=== PATIENT | male | born 1955 | race Caucasian/White ===

== ENCOUNTER 2024-05-24 17:41 | Observation (INO) | payer MEDICARE, OTHER, SELFPAY ==
[2024-05-24 17:58] VITALS: BP 166/82; PULSE 67; RESP 16; TEMP 37.1; O2SAT 95; BMI 24.3
--- NOTE | 2024-05-24 18:42 | ECG_ITS ---
[facility] Test Date: 2024-05-24 Pat Name: Ulises Weaver Department: Room: Gender: Male Piping Drafter: : 1955 Requested By: Piter Maynard Order Number: [id number] Reading MD: Mitul Lozoya M.D. Measurements Intervals [place] Rate: 57 P: 61 CT: 162 QRS: -29 QRSD: 106 T: 55 QT: 419 QTc: 411 Interpretive Statements SINUS BRADYCARDIA INCOMPLETE RIGHT BUNDLE BRANCH BLOCK [90+ ms QRS DURATION, TERMINAL R IN V1/V2, 40+ ms S IN I/aVL/V4/V5/V6] POSSIBLE INFERIOR MYOCARDIAL INFARCTION , OF INDETERMINATE AGE [30 ms Q WAVE IN II/aVF] No previous ECG available for comparison Electronically Signed On 05-26-2024 19:25:38 CDT by Mitul Lozoya M.D. [id number]
--- NOTE | 2024-05-24 18:46 | ED_ITS ---
HPI - General Adult 2 General: Chief complaint: General Medical Stated complaint: insomnia 72hr bp meds reaction to beta blockers Time Seen by Provider: 05/24/24 18:36 Source: patient Mode of arrival: ambulatory Limitations: no limitations History of Present Illness: 68-year-old male states he was on Coreg states that been causing sinus pressure and recently switched to metoprolol after he had follow-up with cardiology at [facility]. He states that he feels like he cannot tolerate that med has been having difficult time sleeping he states he called his pharmacy and switch back to Coreg and states he has not slept on the last 72 hours. He states he feels very tired he is also been having nausea he denies any pain anywhere he states he is try to get old his heel cutter but has not been able to. Associated symptoms: Reports nausea; Deny chest pain, dyspnea, headache(s), rash or vomiting Review of Systems 2 Const: Denies: fever(s), chills, body aches or change in appetite ENMT: Denies: throat pain or dental pain Card: Denies: chest pain Resp: Denies: dyspnea GI: Reports: nausea; Denies: abdominal pain, vomiting or diarrhea Musc: Denies: neck pain or back pain Skin/Breast: Denies: rash Neuro: Denies: headache(s) Physical Exam 2 Const: COMMON NORMALS: no acute distress, patient oriented x3 and healthy appearing HENMT: COMMON NORMALS: normocephalic and atraumatic HEAD & SCALP: n ormocephalic and atraumatic Neck/C-Spine: COMMON NORMALS: full ROM and supple Chest: COMMONS NORMALS: normal inspection of the chest Resp: COMMON NORMALS: normal respiratory effort, No retractions, No use of accessory muscles and clear to auscultation bilaterally AUSCULTATION: clear to auscultation bilaterally Cardio: COMMON NORMALS: regular rate, regular rhythm and No murmurs present (Cardio) RATE: regular rate RHYTHM: regular rhythm GI: COMMON NORMALS: Normal to inspection, nondistended, normoactive bowel sounds present, Soft to palpation, non-tender and no masses PALPATION: Yes Soft to palpation Extremity: COMMON NORMALS: normal to inspection and full ROM Neuro: COMMON NORMALS: patient oriented x3, moves all extremities and no focal motor deficits Psych: COMMON NORMALS: mental status grossly normal, Normal thought process present and cooperative THOUGHT PROCESS: Normal thought process present Skin: COMMON NORMALS: no rashes or lesions noted and no wounds GENERAL SKIN EXAM: no rashes or lesions noted Course 2 Vital Signs: Vital signs: Vital Signs Temperature 98.8 F 05/24/24 17:58 Pulse Rate 61 05/24/24 18:47 Respiratory Rate 16 05/24/24 18:47 Blood Pressure 150/85 05/24/24 18:47 Pulse Oximetry 94 05/24/24 18:47 Oxygen Delivery Me thod Room Air 05/24/24 18:47 MDM - General Adult Medical Decision Making Patient presents here with generalized fatigue difficulty sleeping he is found to be hyponatremic here sodium level here is 127 his abdominal exam is benign no tenderness no chest pain I did speak to the hospitalist will admit at this time. Medical Records I reviewed the patient's medical records. Lab Data I reviewed the patient's lab results. 05/24/24 18:53 05/24/24 18:53 Laboratory Results WBC 10.18 10^3/uL (3.29-11.43) 05/24/24 18:53 RBC 4.77 10^6/uL (3.85-5.65) 05/24/24 18:53 Hgb 14.40 g/dL (11.27-16.99) 05/24/24 18:53 Hct 41.6 % (37-53) 05/24/24 18:53 MCV 87.2 fl (82-101) 05/24/24 18:53 MCH 30.2 pg (27-33) 05/24/24 18:53 MCHC 34.6 g/dL (30-55) 05/24/24 18:53 RDW 11.9 % (12.1-15.1) L 05/24/24 18:53 Plt Count 249 10^3/cmm (157-399) 05/24/24 18:53 MPV 10.2 fL (7.4-10.4) 05/24/24 18:53 Neut % (Auto) 73.4 % 05/24/24 18:53 Lymph % (Auto) 18.3 % 05/24/24 18:53 [place] % (Auto) 7.0 % 05/24/24 18:53 Eos % (Auto) 0.8 % 05/24/24 18:53 Baso % (Auto) 0.2 % 05/24/24 18:53 Neut # (Auto) 7.48 10^3/uL (1.8-7.7) 05/24/24 18:53 Lymph # (Auto) 1.9 10^3/uL (0.8-4.8) 05/24/24 18:53 [place] # (Auto) 0.7 10^3/uL (0.2-0.9) 05/24/24 18:53 Eos # (Auto) 0.1 10^3/uL (0.0-0.8) 05/24/24 18:53 Baso # (Auto) 0.0 10^3/uL (0.0-0.1) 05/24/24 18:53 Nucleated RBC % (auto) 0 % 05/24/24 18:53 Nucleated RBCs # 0.0 /100WBC 05/24/24 18:53 Sodium 127 mmol/L (136-145) L 05/24/24 18:53 Potassium 3.7 mmol/L (3.5-5.1) 05/24/24 18:53 Chloride 94 mmol/L (98-107) L 05/24/24 18:53 Carbon Dioxide 23 mmol/L (22-29) 05/24/24 18:53 Anion Gap 13.7 (5-19) 05/24/24 18:53 BUN 9 mg/dL (8-23) 05/24/24 18:53 Creatinine 0.5 mg/dL (0.7-1.2) L 05/24/24 18:53 GFR Calculation 164.4 mL/min (90-130) H 05/24/24 18:53 Glucose 112 mg/dL (65-115) 05/24/24 18:53 Calculated Osmolality 263 mOsm/kg (285-295) L 05/24/24 18:53 Calcium 8.7 mg/dL (8.5-10.5) 05/24/24 18:53 Total Bilirubin 1.4 mg/dL (0.15-1.2) H 05/24/24 18:53 AST 16 U/L (0-40) 05/24/24 18:53 ALT 18 U/L (0-41) 05/24/24 18:53 Alkaline Phosphatase 54 U/L (40-130) 05/24/24 18:53 Total Protein 6.7 g/dL (6.6-8.7) 05/24/24 18:53 Albumin 4.2 g/dL (3.5-5.2) 05/24/24 18:53 Globulin 2.5 g/dL (1.3-4.6) 05/24/24 18:53 Lipase 32 U/L (13-60) 05/24/24 18:53 TSH 0.65 uIU/mL (0.27-4.20) 05/24/24 18:53 All radiology interpretation(s) finalized by discharge Discharge Plan Discharge Patient Disposition: Admitted As Inpatient Clinical Impression: Hyponatremia Condition: Stable Prescriptions: No Action metoprolol succinate 25 mg tablet extended release 24 hr 12.5 mg PO DAILY Referrals: Maggy Camargo [Primary Care Provider] - Coding Level of Care Code ED Layer Out Plate Glass for Morena Plata
[2024-05-24 18:47] VITALS: BP 150/85; PULSE 61; RESP 16; O2SAT 94
[2024-05-24 19:03] LABS: Basophils % 0.2 %; Eosinophils # 0.1 10^3/uL (0.0-0.8); Eosinophils % 0.8 %; Hematocrit 41.6 % (37-53); Lymphocytes # 1.9 10^3/uL (0.8-4.8); Lymphocytes % 18.3 %; Mean Corpuscular HGB Conc 34.6 g/dL (30-55); Mean Corpuscular Hemoglobin 30.2 pg (27-33); Mean Corpuscular Volume 87.2 fl (82-101); Mean Platelet Volume 10.2 fL (7.4-10.4); Monocytes # 0.7 10^3/uL (0.2-0.9); Neutrophils # 7.48 10^3/uL (1.8-7.7); Neutrophils % 73.4 %; Nucleated Red Blood Cells % 0 %; Platelet Count 249 10^3/cmm (157-399); Red Blood Count 4.77 10^6/uL (3.85-5.65); Red Cell Distribution Width 11.9 % (12.1-15.1); White Blood Count 10.18 10^3/uL (3.29-11.43)
[2024-05-24 19:29] LABS: Alanine Aminotransferase 18 U/L (0-41); Albumin Level 4.2 g/dL (3.5-5.2); Alkaline Phosphatase 54 U/L (40-130); Anion Gap 13.7 (5-19); Aspartate Amino Transferase 16 U/L (0-40); Blood Urea Nitrogen 9 mg/dL (8-23); Calcium 8.7 mg/dL (8.5-10.5); Carbon Dioxide 23 mmol/L (22-29); Chloride 94 mmol/L (98-107); Creatinine Clr Calc Pharmacy 90.7137; Globulin 2.5 g/dL (1.3-4.6); Glomerular Filtration Rate 164.4 mL/min (90-130); Glucose 112 mg/dL (65-115); Lipase 32 U/L (13-60); Osmolality Calculated 263 mOsm/kg (285-295); Potassium 3.7 mmol/L (3.5-5.1); Sodium 127 mmol/L (136-145); Thyroid Stimulating Hormone 0.65 uIU/mL (0.27-4.20); Total Bilirubin 1.4 mg/dL (0.15-1.2); Total Protein 6.7 g/dL (6.6-8.7)
[2024-05-24] MEDS: sodium chloride 0.9% 1,000 ML 999 ML IV (20:30)
--- NOTE | 2024-05-24 20:33 | P.HP_ITS ---
Providers/Chief Complaint 2 Primary Care Provider: Maggy Camargo Chief Complaint: insomnia 72hr bp meds reaction to beta blockers History of Present Illness Ulises Weaver is a 68 year old male with history of SVT, sinus congestion/allergic rhinitis which is chronic presented to the hospital today with nausea. He states that he was diagnosed with PVCs and SVT and was symptomatic and therefore was placed on Coreg 3.1252 months ago. He said he had SVT and PVCs for a long time however he is unsure why he was recently placed on a beta-norris. Perhaps secondary to symptoms?. He states he wore a Holter monitor for 72 hours and it revealed PVCs and an abnormal EKG however he is unable to tell me details of that. Therefore he had a stress test and an echo which were both normal. He follows with Dr. Mg in [place]. 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 He states he felt more terrible also called his pharmacist 3 days ago and discussed the above adverse effects therefore decided to go back to Coreg. His primary reason for coming to the hospital was extreme nausea and not feeling well and loss of appetite. He was also having mild abdominal pain which is improved at this time. On arrival to ER sodium was found to be 127, creatinine 0.5. T. bili is 1.4 however patient states he has no other medical problems and is fairly healthy. He does not take any medications at home. TSH is 0.70. No imaging studies have been obtained so far. Denies chest pain, shortness of breath. Patient additionally endorses having loose stools once a day. This has been going on for the last few days. There is no blood in stool. In ER he was given 1 L normal saline bolus Medications/Allergies Home Medications Medication Instructions Recorded Confirmed Last Taken Type metoprolol succinate 25 mg 12.5 mg PO DAILY 05/24/24 05/24/24 Unknown History tablet,extended release 24 hr Allergies Allergy/AdvReac Type Severity Reaction Status Date / Time tetracycline Allergy Unknown Verified 05/24/24 18:03 Vitals/I&O/Wt Last Vital Signs Temp 98.8 F 05/24/24 17:58 Pulse 61 05/24/24 18:47 Resp 16 07/05/24 18:47 BP 150/85 05/24/24 18:47 Pulse Ox 94 05/24/24 18:47 O2 Del Method Room Air 05/24/24 18:47 Weight last 48 hrs Weight 77.111 kg Physical Exam 2 Narrative: General: Alert oriented x3, patient seen sitting up in bed appearing comfortable at this time surrounded by family. RN present in room. Patient on room air. No acute distress. HEENT: Normocephalic, atraumatic, EOMI, Cardio: Regular rate rhythm, normal S1-S2 no gross murmurs appreciated. Respiratory: Good bilateral air entry, no wheezes no rhonchi appreciated GI: Abdomen soft, nontender, nondistended, bowel sounds +, no guarding Behavior: Appropriate and cooperative Extremities: Within normal limits. Data 05/24/24 18:53 05/24/24 20:57 A&P Assessment and plan (1) Hyponatremia: (2) Abdominal pain: (3) Nausea: (4) Total bilirubin, elevated: (5) Hypertension: (6) SVT (supraventricular tachycardia): (7) PVC (premature ventricular contraction): Plan #Nausea, abdominal pain #Acute hyponatremia #History of SVTs, PVCs -Patient does have a normal stress test and normal echo as reported by the patient. The studies were done in [place]. He follows with Dr. Mg as an outpatient. I will continue to hold Coreg and metoprolol both at this time. We will need to obtain records from [place]. ? Lona. tresi 1.4. No imaging studies have been obtained. Patient does not endorse any issues and states he is medically healthy otherwise. ? I will order abdominal ultrasound at this time. ? Abdominal pain and nausea may be secondary to hyponatremia however sodium is not that low to cause symptoms however it is still possible. ? Loose stools once a day may be nonspecific finding? I do not believe there is an active infection going on. I would observe that for now. ? Check urine osmolality, serum osmolality, urine sodium ? Sodium 125 on arrival. Not to correct more than 6 to 8 mEq per 24-hour.. ? Patient did get 1 L normal saline bolus. He denies any vomiting at this time. ? He does not take any home medications. ? Will place on normal saline 75 cc/h and check BMP every 4 hours. ? Continue to monitor on telemetry. ? May order CT abdomen pelvis in a.m. if further studies warranted. Will repeat CMP in AM. ? Patient denies alcohol use, smoking, illicit drug use Discussed at length with the patient regarding his sinus issues and it is possible that patient may have chronic allergic rhinitis. I did offer to give a trial of Flonase however patient states he is going to be seeing an ENT doctor and does not want to try any medications at this time. -Patient takes melatonin daily to help him sleep. I will order Ambien 2.5 x 1 for him. He agrees. -Blood pressure has been elevated since arrival. Denies a history of hypertension. Will continue to monitor for now. Advised patient to keep a blood pressure log sheet at home and take to the next primary care appointment. - Check urinalysis Full code DVT prophylaxis: Heparin SQ twice daily Attestations 2 Medical Necessity Statement*: Less than 48-hour stay for management of acute hyponatremia. Diagnoses Hyponatremia E87.1 Abdominal pain R10.9 Nausea R11.0 Total bilirubin, elevated R17 Hypertension I10 SVT (supraventricular tachycardia) I47.10 PVC (premature ventricular contraction) I49.3
[2024-05-24 20:34] VITALS: BP 172/86; PULSE 60; RESP 17; TEMP 37.1; O2SAT 97
[2024-05-24 21:29] LABS: Anion Gap 12.8 (5-19); Blood Urea Nitrogen 9 mg/dL (8-23); Calcium 8.3 mg/dL (8.5-10.5); Carbon Dioxide 24 mmol/L (22-29); Chloride 97 mmol/L (98-107); Creatinine Clr Calc Pharmacy 90.7137; Glomerular Filtration Rate 164.4 mL/min (90-130); Glucose 121 mg/dL (65-115); Osmolality Calculated 270 mOsm/kg (285-295); Potassium 3.8 mmol/L (3.5-5.1); Sodium 130 mmol/L (136-145)
[2024-05-24 21:43] LABS: Urine Random Sodium 70 mmol/L
[2024-05-24] MEDS: sodium chloride 0.9% 1,000 ML 75 ML IV (21:43)
[2024-05-24 21:52] VITALS: BP 150/85; PULSE 61; RESP 16; TEMP 37.1; O2SAT 94
[2024-05-24] MEDS: zolpidem 5 mg Tablet 2.5 MG PO (22:29)
[2024-05-24 22:51] VITALS: PULSE 65
[2024-05-25] VITALS: BP 150/78; PULSE 65; RESP 17; TEMP 36.6; O2SAT 94
--- NOTE | 2024-05-25 00:11 | USR_ITS ---
PROCEDURE INFORMATION: Exam: US Abdomen Complete Exam date and time: 05/25/2024 7:12 AM Age: 68 years old Clinical indication: Abdominal pain; Additional info: Abdominal pain, total bilirubin elevated. Check for gall stones. TECHNIQUE: Imaging protocol: Real-time ultrasound of the abdomen with image documentation. Complete exam. COMPARISON: No relevant prior studies available. FINDINGS: Liver: The liver is echogenic compatible with fatty infiltration. No focal liver masses identified. No ductal dilatation is identified. Gallbladder: Normal. No gallstones. There is no gallbladder wall thickening. Biliary ducts: Normal. No stones. No dilation. The common bile duct measures 6 mm in size. Pancreas: The pancreatic head and proximal body are normal in echotexture. The distal body and tail are poorly seen secondary to overlying bowel gas. Right kidney: Normal. No mass. No hydronephrosis. The right kidney measures 10 cm in length and is normal in echotexture. Left kidney: Normal. No mass. No hydronephrosis. The left kidney measures 11.8 cm in length and is normal in echotexture. Spleen: Normal. No splenomegaly. Aorta: Normal. No aneurysm. Inferior vena cava: Normal. US/US abdomen complete* [id number] IMPRESSION: 1. Fatty infiltration of the liver.
[2024-05-25 02:27] LABS: Anion Gap 11.1 (5-19); Blood Urea Nitrogen 7 mg/dL (8-23); Calcium 8.4 mg/dL (8.5-10.5); Carbon Dioxide 26 mmol/L (22-29); Chloride 104 mmol/L (98-107); Creatinine Clr Calc Pharmacy 90.5066; Glomerular Filtration Rate 133.2 mL/min (90-130); Glucose 101 mg/dL (65-115); Osmolality Calculated 282 mOsm/kg (285-295); Potassium 4.1 mmol/L (3.5-5.1); Sodium 137 mmol/L (136-145)
[2024-05-25 04:00] VITALS: BP 134/70; PULSE 52; RESP 17; TEMP 36.6; O2SAT 92
[2024-05-25 05:53] VITALS: PULSE 53
[2024-05-25 05:53] LABS: Basophils % 0.2 %; Eosinophils # 0.2 10^3/uL (0.0-0.8); Eosinophils % 1.8 %; Hematocrit 42.5 % (37-53); Lymphocytes # 2.1 10^3/uL (0.8-4.8); Mean Corpuscular HGB Conc 33.6 g/dL (30-55); Mean Corpuscular Hemoglobin 30.3 pg (27-33); Mean Platelet Volume 10.3 fL (7.4-10.4); Monocytes # 0.8 10^3/uL (0.2-0.9); Monocytes % 9.5 %; Neutrophils # 5.31 10^3/uL (1.8-7.7); Neutrophils % 63.1 %; Nucleated Red Blood Cells % 0 %; Platelet Count 222 10^3/cmm (157-399); Red Blood Count 4.72 10^6/uL (3.85-5.65); Red Cell Distribution Width 12.3 % (12.1-15.1); White Blood Count 8.41 10^3/uL (3.29-11.43)
[2024-05-25 06:13] LABS: Alanine Aminotransferase 18 U/L (0-41); Albumin Level 3.8 g/dL (3.5-5.2); Alkaline Phosphatase 50 U/L (40-130); Anion Gap 10.1 (5-19); Aspartate Amino Transferase 16 U/L (0-40); Blood Urea Nitrogen 8 mg/dL (8-23); Calcium 8.7 mg/dL (8.5-10.5); Carbon Dioxide 25 mmol/L (22-29); Chloride 104 mmol/L (98-107); Globulin 2.2 g/dL (1.3-4.6); Glomerular Filtration Rate 164.4 mL/min (90-130); Glucose 96 mg/dL (65-115); Osmolality Calculated 278 mOsm/kg (285-295); Phosphorus 2.6 mg/dL (2.5-4.5); Potassium 4.1 mmol/L (3.5-5.1); Sodium 135 mmol/L (136-145); Total Bilirubin 1.7 mg/dL (0.15-1.2)
[2024-05-25 06:16] LABS: Creatinine Clr Calc Pharmacy 91.2508
[2024-05-25 07:45] VITALS: BP 154/72; PULSE 59; RESP 17; TEMP 36.6; O2SAT 94
[2024-05-25] MEDS: heparin 5,000 unit/mL INJ 1 mL 5000 UNIT SUBCUT (08:35)
[2024-05-25 09:19] LABS: Anion Gap 13.1 (5-19); Blood Urea Nitrogen 8 mg/dL (8-23); Calcium 8.7 mg/dL (8.5-10.5); Carbon Dioxide 23 mmol/L (22-29); Chloride 103 mmol/L (98-107); Glomerular Filtration Rate 133.2 mL/min (90-130); Glucose 126 mg/dL (65-115); Osmolality Calculated 280 mOsm/kg (285-295); Potassium 4.1 mmol/L (3.5-5.1); Sodium 135 mmol/L (136-145)
--- NOTE | 2024-05-25 09:28 | CTR_ITS ---
PROCEDURE INFORMATION: Exam: CT Head Without Contrast Exam date and time: 05/25/2024 10:40 AM Age: 68 years old Clinical indication: Other: [place] TECHNIQUE: Imaging protocol: Computed tomography of the head without contrast. Radiation optimization: All CT scans at this facility use at least one of these dose optimization techniques: automated exposure control; mA and/or kV adjustment per patient size (includes targeted exams where dose is matched to clinical indication); or iterative reconstruction. COMPARISON: No relevant prior studies available. RADIATION DOSE METRICS: Total DLP (mGy-cm): 1097.28 FINDINGS: Brain: Normal. No hemorrhage. Unremarkable white matter. No mass effect. Cerebral ventricles: No ventriculomegaly. Paranasal sinuses: There is mucosal thickening involving the paranasal sinuses. Mastoid air cells: Visualized mastoid air cells are well aerated. Bones: Unremarkable. No acute fracture. Soft tissues: Unremarkable. CT/CT head wo con* [id number] IMPRESSION: 1. No acute intracranial findings.
--- NOTE | 2024-05-25 09:28 | CTR_ITS ---
PROCEDURE INFORMATION: Exam: CT Abdomen And Pelvis Without Contrast Exam date and time: 05/25/2024 10:40 AM Age: 68 years old Clinical indication: Nausea; Additional info: [place] TECHNIQUE: Imaging protocol: Computed tomography of the abdomen and pelvis without contrast. Radiation optimization: All CT scans at this facility use at least one of these dose optimization techniques: automated exposure control; mA and/or kV adjustment per patient size (includes targeted exams where dose is matched to clinical indication); or iterative reconstruction. COMPARISON: US gall bladder [id number] 05/25/2024 7:12 AM RADIATION DOSE METRICS: Total DLP (mGy-cm): 458.57 FINDINGS: Lungs: Atelectatic changes in both lung bases. Liver: Normal. No mass. Gallbladder and biliary ducts: Normal. No calcified stones. No ductal dilation. Pancreas: Normal. No ductal dilation. Spleen: Calcified granulomas in the spleen. Adrenal glands: There is a 1.7 x 1.5 x 1.6 cm right adrenal nodule with average CT density of-7 Hounsfield units, consistent with a lipid rich adenoma. There is a 1.7 x 1 x 4.1 cm left adrenal nodule with average CT density of -2 Hounsfield units, consistent with lipid rich adenoma. Kidneys and ureters: There is a nonobstructing stone in the interpolar region of the right kidney measuring 6 mm. Nonobstructing stone in the lower pole of the left kidney measuring 3 mm. No hydronephrosis either side. Stomach and bowel: Unremarkable. No obstruction. No mucosal thickening. Appendix: No evidence of appendicitis. Intraperitoneal space: Unremarkable. No free air. No significant fluid collection. Vasculature: Vascular calcifications. Pelvic phleboliths. Lymph nodes: Unremarkable. No enlarged lymph nodes. Urinary bladder: Unremarkable as visualized. Reproductive: Enlarged prostate with median lobe impinging on neck bladder. Bones/joints: Mild degenerative disease of the symphysis and bilateral sacroiliac joints. Mild curvature of the lumbar spine convex to the left. Multilevel mild degenerative disease of the lumbar spine with multilevel anterior osteophytes Soft tissues: Fat containing umbilical hernia. Bilateral fat containing umbilical hernias. CT/CT abdomen pelvis wo con [id number] IMPRESSION: 1. No acute intra-abdominal process. 2. Bilateral nonobstructing urinary stones. 3. Bilateral adrenal adenomas. COMMENTS: Consistent with the [employer]'s Incidental Findings Committee white paper (J Am Kevin Radiol 2017): For any incidental adrenal lesion greater than or equal to 1 cm but less than or equal to 4 cm classified in this report as benign, likely benign, or containing fat (including classification as an adenoma or myelolipoma), no follow-up imaging is recommended per consensus recommendations based on imaging criteria. Further lab evaluation could be pursued if warranted based on clinical findings.
[2024-05-25 09:29] LABS: Cortisol Random 18.31 ug/dL (2.47-19.5)
[2024-05-25 09:36] LABS: Creatinine Clr Calc Pharmacy 91.2508
--- NOTE | 2024-05-25 11:14 | PM.DCS ---
Discharge Providers Date of Admission: 05/24/24 20:48 Date of Discharge: May 25, 2024 Attending Provider at Admission: Kamryn Ojeda MD Attending Provider at Discharge: Didier Georges MD Primary Care Provider: Maggy Camargo Diagnoses at Discharge Discharge Diagnosis (1) Hyponatremia: Status: Acute (2) Abdominal pain: Status: Acute (3) Nausea: Status: Acute (4) Total bilirubin, elevated: Status: Acute (5) Hypertension: Status: Acute (6) SVT (supraventricular tachycardia): Status: Acute (7) PVC (premature ventricular contraction): Status: Acute Reason for Visit Reason for Visit: insomnia 72hr bp meds reaction to beta blockers Hospital Course Hospital Course 68-year-old male who was admitted for management valuation of nausea, patient stating that he has not been able to sleep for at least 72 hours, he did not miss any vomiting, he has established diagnosis of Gilbert's syndrome he is aware that his bilirubin stays high with stress, I requested CT head and abdominal pelvis CT scan which was unremarkable liver ultrasound showed fatty liver no CBD dilation, patient was drinking almost 1500 mL of fluid every day because he was experiencing sinus congestion he was not taking any salt use that most likely is the cause of hyponatremia which has corrected with IV fluid hydration in the hospital. He remained hemodynamically stable he also carries established diagnosis of bradycardia, patient was switched from metoprolol to Coreg by his career technology teacher Dr. Mg in [place] but he is stating that because of side effects he is not going to continue this medication. I did tell the patient that I am reluctant to add any medications for now or change without his career technology teacher's advice. Patient stating that he would like to see his career technology teacher and vascular instead of going to [place]. I will give him referral to see Dr. Yao. He is being discharged with stable hemodynamics. All of his questions and concerns were answered. Normal cortisol, TSH level. Physical Exam Narrative: Awake and alert Euvolemic GCS 15 Pleasant cooperative Hemodynamic stable Discharge Data Studies Completed and Pending Completed Studies During Hospitalization Category Date Time Status CT abdomen pelvis wo con [id number] Routine Cat Scan 05/25/24 09:[address] head wo con* [id number] Routine Cat Scan 05/25/24 09:28 Completed US abdomen complete* [id number] Stat Ultrasound 05/25/24 00:11 Completed Pending at discharge Category Date Time Status BMP [Basic Metabolic Panel] Q4H Lab 05/25/24 13:00 Ordered BMP [Basic Metabolic Panel] Q4H Lab 05/25/24 17:00 Ordered Osmolality Serum Stat Lab 05/24/24 20:57 Received Osmolality Urine Stat Lab 05/24/24 18:20 Received Radiology Impressions Abdomen Ultrasound 05/25/24 00:11 IMPRESSION: 1. Fatty infiltration of the liver. Abdomen/Pelvis CT 05/25/24 09:28 IMPRESSION: 1. No acute intra-abdominal process. 2. Bilateral nonobstructing urinary stones. 3. Bilateral adrenal adenomas. COMMENTS: Consistent with the [employer]'s Incidental Findings Committee white paper (J Am Kevin Radiol 2017): For any incidental adrenal lesion greater than or equal to 1 cm but less than or equal to 4 cm classified in this report as benign, likely benign, or containing fat (including classification as an adenoma or myelolipoma), no follow-up imaging is recommended per consensus recommendations based on imaging criteria. Further lab evaluation could be pursued if warranted based on clinical findings. Head CT 05/25/24 09:28 IMPRESSION: 1. No acute intracranial findings. Laboratory Results WBC 8.41 10^3/uL (3.29-11.43) 05/25/24 05:17 RBC 4.72 10^6/uL (3.85-5.65) 05/25/24 05:17 Hgb 14.30 g/dL (11.27-16.99) 05/25/24 05:17 Hct 42.5 % (37-53) 05/25/24 05:17 MCV 90.0 fl (82-101) 05/25/24 05:17 MCH 30.3 pg (27-33) 05/25/24 05:17 MCHC 33.6 g/dL (30-55) 05/25/24 05:17 RDW 12.3 % (12.1-15.1) 05/25/24 05:17 Plt Count 222 10^3/cmm (157-399) 05/25/24 05:17 MPV 10.3 fL (7.4-10.4) 05/25/24 05:17 Neut % (Auto) 63.1 % 05/25/24 05:17 Lymph % (Auto) 25.0 % 05/25/24 05:17 [place] % (Auto) 9.5 % 05/25/24 05:17 Eos % (Auto) 1.8 % 05/25/24 05:17 Baso % (Auto) 0.2 % 05/25/24 05:17 Neut # (Auto) 5.31 10^3/uL (1.8-7.7) 05/25/24 05:17 Lymph # (Auto) 2.1 10^3/uL (0.8-4.8) 05/25/24 05:17 [place] # (Auto) 0.8 10^3/uL (0.2-0.9) 05/25/24 05:17 Eos # (Auto) 0.2 10^3/uL (0.0-0.8) 05/25/24 05:17 Baso # (Auto) 0.0 10^3/uL (0.0-0.1) 05/25/24 05:17 Nucleated RBC % (auto) 0 % 05/25/24 05:17 Nucleated RBCs # 0.0 /100WBC 05/25/24 05:17 Sodium 135 mmol/L (136-145) L 05/25/24 08:46 Potassium 4.1 mmol/L (3.5-5.1) 05/25/24 08:46 Chloride 103 mmol/L (98-107) 05/25/24 08:46 Carbon Dioxide 23 mmol/L (22-29) 05/25/24 08:46 Anion Gap 13.1 (5-19) 05/25/24 08:46 BUN 8 mg/dL (8-23) 05/25/24 08:46 Creatinine 0.6 mg/dL (0.7-1.2) L 05/25/24 08:46 GFR Calculation 133.2 mL/min (90-130) H 05/25/24 08:46 Glucose 126 mg/dL (65-115) H 05/25/24 08:46 Calculated Osmolality 280 mOsm/kg (285-295) L 05/25/24 08:46 Calcium 8.7 mg/dL (8.5-10.5) 05/25/24 08:46 Phosphorus 2.6 mg/dL (2.5-4.5) 05/25/24 05:17 Magnesium 2.0 mg/dL (1.7-2.3) 05/25/24 05:17 Total Bilirubin 1.7 mg/dL (0.15-1.2) H 05/25/24 05:17 AST 16 U/L (0-40) 05/25/24 05:17 ALT 18 U/L (0-41) 05/25/24 05:17 Alkaline Phosphatase 50 U/L (40-130) 05/25/24 05:17 Total Protein 6.0 g/dL (6.6-8.7) L 05/25/24 05:17 Albumin 3.8 g/dL (3.5-5.2) 05/25/24 05:17 Globulin 2.2 g/dL (1.3-4.6) 05/25/24 05:17 Lipase 32 U/L (13-60) 05/24/24 18:53 TSH 0.70 uIU/mL (0.27-4.20) 05/24/24 20:57 Random Cortisol 18.31 ug/dL (2.47-19.5) 05/25/24 08:46 Ur Random Sodium 70 mmol/L 05/24/24 18:20 Vitals Last Vital Signs Temp 97.8 F 05/25/24 07:45 Pulse 59 L 05/25/24 07:45 Resp 17 05/25/24 07:45 BP 154/72 05/25/24 07:45 Pulse Ox 94 05/25/24 07:45 O2 Del Method Room Air 05/25/24 07:45 Discharge Plan Discharge Patient Disposition: Home Condition: Stable Prescriptions: Discontinued metoprolol succinate 25 mg tablet extended release 24 hr 12.5 mg PO DAILY Discharge Orders: Discharge Order (Routine); Ordered 05/25/24 Ordered By: Didier Georges Referrals: Maggy Camargo [Primary Care Provider] - Hunter Yao MD [Physician] - 2 weeks Patient Instructions: Opioid Safety Discharge Attestations Time Spent in Discharge Care*: greater than 30 min Quality Metrics Clinical Quality Measures [ No reported AMI, CVA or VTE this stay] Coding Level of Care Code Acute Code for Chg Fwd Diagnoses Hyponatremia E87.1 Abdominal pain R10.9 Nausea R11.0 Total bilirubin, elevated R17 Hypertension I10 SVT (supraventricular tachycardia) I47.10 PVC (premature ventricular contraction) I49.3
[2024-05-25 11:30] VITALS: BP 148/72; PULSE 57; RESP 18; TEMP 36.7; O2SAT 94
--- NOTE | 2024-05-25 12:54 | PC.NURSE ---
Patient requested to have a copy of his Abdominal/Pelvic CT results. Dr. Georges gave verbal permission to send a copy home with patient. Copy given.
[2024-05-25 14:00] VITALS: BP 148/72; PULSE 57; RESP 18; TEMP 36.7; O2SAT 94
[2024-05-27 13:24] LABS: Osmolality Serum 273 mOsm/kg (278-305)
[2024-05-27 15:46] LABS: Osmolality Urine 524 mOsm/kg (50-1200)
== END 2024-05-25 13:20 | disposition home or self-care (01) ==
LOC: ER 20:44 → MEDSURG 20:49
PROVIDERS: Admitting Provider Internal Medicine; Emergency Provider Emergency Medicine; PCP Nurse Practitioner Family; Visit Provider Internal Medicine
DX: R11.0 Nausea (principal); I10 Essential (primary) hypertension; E87.1 Hypo-osmolality and hyponatremia; R10.9 Unspecified abdominal pain; I47.10 Supraventricular tachycardia, unspecified; I49.3 Ventricular premature depolarization; E80.4 Gilbert syndrome; K76.0 Fatty (change of) liver, not elsewhere classified
CPT/HCPCS: 36415; 70450; 74176; 76700; 80048; 80053; 82533; 83690; 83735; 83930; 83935; 84100; 84300; 84443; 85025; 93005; 96360; 96361; 96372; 99285; G0378; J1644; J7030

== ENCOUNTER 2024-05-27 21:50 | Emergency (ER) | payer MEDICARE, OTHER, SELFPAY ==
[2024-05-27 22:02] VITALS: BP 174/90; PULSE 62; RESP 16; TEMP 37; O2SAT 99
[2024-05-27 22:42] LABS: Basophils % 0.3 %; Eosinophils # 0.2 10^3/uL (0.0-0.8); Eosinophils % 1.9 %; Hematocrit 42.7 % (37-53); Lymphocytes # 1.9 10^3/uL (0.8-4.8); Lymphocytes % 17.9 %; Mean Corpuscular HGB Conc 34.2 g/dL (30-55); Mean Corpuscular Hemoglobin 30.4 pg (27-33); Mean Corpuscular Volume 88.8 fl (82-101); Mean Platelet Volume 10.4 fL (7.4-10.4); Monocytes # 0.9 10^3/uL (0.2-0.9); Monocytes % 8.3 %; Neutrophils # 7.42 10^3/uL (1.8-7.7); Neutrophils % 71.2 %; Nucleated Red Blood Cells % 0 %; Platelet Count 250 10^3/cmm (157-399); Red Blood Count 4.81 10^6/uL (3.85-5.65); Red Cell Distribution Width 12.2 % (12.1-15.1); White Blood Count 10.42 10^3/uL (3.29-11.43)
--- NOTE | 2024-05-27 22:43 | ECG_ITS ---
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 Measurements Intervals [place] Rate: 58 P: 3 NC: 136 QRS: -33 QRSD: 98 T: 30 QT: 408 QTc: 402 Interpretive Statements SINUS BRADYCARDIA LEFT AXIS DEVIATION [QRS AXIS < -30] Compared to ECG 05/24/2024 19:14:50 Left-axis deviation now present Incomplete right bundle-branch block no longer present Myocardial infarct finding no longer present Electronically Signed On 05-28-2024 9:01:44 CDT by Mitul Lozoya M.D. [id number]
[2024-05-27 22:48] LABS: Troponin(5th) Baseline 7 ng/L (0-15)
[2024-05-27 22:49] LABS: Alanine Aminotransferase 22 U/L (0-41); Albumin Level 4.2 g/dL (3.5-5.2); Alkaline Phosphatase 58 U/L (40-130); Anion Gap 14.3 (5-19); Aspartate Amino Transferase 20 U/L (0-40); Blood Urea Nitrogen 14 mg/dL (8-23); Calcium 9.1 mg/dL (8.5-10.5); Carbon Dioxide 25 mmol/L (22-29); Chloride 93 mmol/L (98-107); Creatinine Clr Calc Pharmacy 90.7137; Globulin 2.3 g/dL (1.3-4.6); Glomerular Filtration Rate 133.2 mL/min (90-130); Glucose 115 mg/dL (65-115); Osmolality Calculated 267 mOsm/kg (285-295); Potassium 4.3 mmol/L (3.5-5.1); Sodium 128 mmol/L (136-145); Total Bilirubin 1.5 mg/dL (0.15-1.2); Total Protein 6.5 g/dL (6.6-8.7)
--- NOTE | 2024-05-27 22:58 | W.ED.GENADLT ---
HPI - General Adult General: Chief complaint: General Medical Stated complaint: Low sodiam Time Seen by Provider: 05/27/24 21:55 History of Present Illness: Patient presents with recurrent lightheadedness and shaking of his jaw. He was admitted for this recently and it was thought to maybe be his low sodium. He says he has been drinking lots of water. He had felt better for some time and now it is worse again. No chest pain. No nausea or vomiting. No abdominal pain. No dysuria. Review of Systems Narrative: Constitutional symptoms: Negative except as documented in HPI. Skin symptoms: Negative except as documented in HPI. Eye symptoms: Negative except as documented in HPI. ENMT symptoms: Negative except as documented in HPI. Respiratory symptoms: Negative except as documented in HPI. Cardiovascular symptoms: Negative except as documented in HPI. Gastrointestinal symptoms: Negative except as documented in HPI. Genitourinary symptoms: Negative except as documented in HPI. Musculoskeletal symptoms: Negative except as documented in HPI. Neurologic symptoms: Negative except as documented in HPI. Psychiatric symptoms: Negative except as documented in HPI. Endocrine symptoms: Negative except as documented in HPI. [facility] PFSH: Medical History (Updated 05/27/24 @ 23:17 by Lucy Flannery MD) PVC (premature ventricular contraction) SVT (supraventricular tachycardia) Hypertension Total bilirubin, elevated Nausea Abdominal pain Hyponatremia Physical Exam Narrative: EXAM NARRATIVE: General: Alert, no acute distress. Skin: Warm, dry. Head: Normocephalic, atraumatic. Neck: Supple, trachea midline. Eye: Extraocular movements are intact. Ears, nose, mouth and throat: mucosa moist. Cardiovascular: Regular, Normal peripheral perfusion. Respiratory: Lungs are clear to auscultation, respirations are non-labored, breath sounds are equal, Symmetrical chest wall expansion. Gastrointestinal: Soft, Nontender, Non distended Musculoskeletal: Normal ROM, no deformity. Neurological: Alert and oriented, No focal neurological deficit observed. Psychiatric: Cooperative, appropriate mood & affect. Course Vital Signs: Vital signs: Vital Signs Temperature 98.6 F 05/27/24 22:02 Pulse Rate 61 05/27/24 23:12 Respiratory Rate 16 05/27/24 22:02 Blood Pressure 174/90 05/27/24 23:12 Pulse Oximetry 97 05/27/24 23:12 Oxygen Delivery Me thod Room Air 05/27/24 23:12 MDM - General Adult Medical Decision Making Lab Review: Laboratory results were reviewed and interpreted by myself the emergency room physician. Patient's sodium is down to 128 again. Otherwise lab work is normal. No leukocytosis. No anemia. No renal failure. I reviewed the patient's medical record. Reexamination: Patient remained stable. No altered mental status. No focal motor deficits. No increased work of breathing. We had an extremely long talk. Patient is very concerned about artificial and nonorganic products. Sounds like he has been drinking a lot of straight water which may be affecting his sodium levels. I also discussed that perhaps his symptoms are not even related to his low sodium. We also discussed that further workup might need to be done through a retail general manager which would require him going to see his primary care physician for this. We discussed the use of electrolyte containing drinks. Assessment and plan: Hyponatremia -1 L normal saline bolus in the emergency room. - Discharged home - Discussed plan with patient. Answered any questions. - Evaluation and treatment of this problem were appropriate in the emergency setting. Lab Data 05/27/24 22:16 05/27/24 22:16 Laboratory Results WBC 10.42 10^3/uL (3.29-11.43) 05/27/24 22:16 RBC 4.81 10^6/uL (3.85-5.65) 05/27/24 22:16 Hgb 14.60 g/dL (11.27-16.99) 05/27/24 22:16 Hct 42.7 % (37-53) 05/27/24 22:16 MCV 88.8 fl (82-101) 05/27/24 22:16 MCH 30.4 pg (27-33) 05/27/24 22:16 MCHC 34.2 g/dL (30-55) 05/27/24 22:16 RDW 12.2 % (12.1-15.1) 05/27/24 22:16 Plt Count 250 10^3/cmm (157-399) 05/27/24 22:16 MPV 10.4 fL (7.4-10.4) 05/27/24 22:16 Neut % (Auto) 71.2 % 05/27/24 22:16 Lymph % (Auto) 17.9 % 05/27/24 22:16 [place] % (Auto) 8.3 % 05/27/24 22:16 Eos % (Auto) 1.9 % 05/27/24 22:16 Baso % (Auto) 0.3 % 05/27/24 22:16 Neut # (Auto) 7.42 10^3/uL (1.8-7.7) 05/27/24 22:16 Lymph # (Auto) 1.9 10^3/uL (0.8-4.8) 05/27/24 22:16 [place] # (Auto) 0.9 10^3/uL (0.2-0.9) 05/27/24 22:16 Eos # (Auto) 0.2 10^3/uL (0.0-0.8) 05/27/24 22:16 Baso # (Auto) 0.0 10^3/uL (0.0-0.1) 05/27/24 22:16 Nucleated RBC % (auto) 0 % 05/27/24 22:16 Nucleated RBCs # 0.0 /100WBC 05/27/24 22:16 Sodium 128 mmol/L (136-145) L 05/27/24 22:16 Potassium 4.3 mmol/L (3.5-5.1) 05/27/24 22:16 Chloride 93 mmol/L (98-107) L 05/27/24 22:16 Carbon Dioxide 25 mmol/L (22-29) 05/27/24 22:16 Anion Gap 14.3 (5-19) 05/27/24 22:16 BUN 14 mg/dL (8-23) 05/27/24 22:16 Creatinine 0.6 mg/dL (0.7-1.2) L 05/27/24 22:16 GFR Calculation 133.2 mL/min (90-130) H 05/27/24 22:16 Glucose 115 mg/dL (65-115) 05/27/24 22:16 Calculated Osmolality 267 mOsm/kg (285-295) L 05/27/24 22:16 Calcium 9.1 mg/dL (8.5-10.5) 05/27/24 22:16 Total Bilirubin 1.5 mg/dL (0.15-1.2) H 05/27/24 22:16 AST 20 U/L (0-40) 05/27/24 22:16 ALT 22 U/L (0-41) 05/27/24 22:16 Alkaline Phosphatase 58 U/L (40-130) 05/27/24 22:16 Troponin T Baseline 7 ng/L (0-15) 05/27/24 22:16 Total Protein 6.5 g/dL (6.6-8.7) L 05/27/24 22:16 Albumin 4.2 g/dL (3.5-5.2) 05/27/24 22:16 Globulin 2.3 g/dL (1.3-4.6) 05/27/24 22:16 Amorphous Sediment Not Reportable 05/27/24 21:57 No radiology studies performed this visit Discharge Plan Discharge Patient Disposition: Home Clinical Impression: Hyponatremia, Insomnia Condition: Stable Prescriptions: No Action Ambien 5 mg tablet 5 mg PO BEDTIME PRN (Reason: insomnia) Qty: 5 0RF Discharge Orders: Discharge ED (Routine); Ordered 05/27/24 Ordered By: Lucy Flannery Referrals: Maggy Camargo [Primary Care Provider] - Discharge Diet: Usual diet Discharge Activity: Resume usual activity Patient Instructions: Hyponatremia (ED) Activity Restrictions/Additional Instructions: Please follow-up with your primary soon as possible and discussed the possibility of seeing a retail general manager. If you develop concerning symptoms for hyponatremia return to the emergency room. Thank you for choosing [facility] for your healthcare needs today. Please realize this is an emergency room and that we are often providing you with a medical screening exam and this may not be complete and all inclusive of all the testing and or work up that you may need to determine your ailment or severity of your illness. You have been screened and evaluated and felt safe for discharge. Health conditions do change or evolve sometimes and as such it is important that you follow up with your Primary Doctor to be re checked, 3-5 days is a general good time frame for follow up. You are always welcome to return to the ED for re assessment if your symptoms are worsening or you have new concerns Coding Level of Care Code ED Vice President Of Human Resources for [employer]
[2024-05-27] MEDS: sodium chloride 0.9% 1,000 ML 999 ML IV (23:07)
[2024-05-27 23:12] VITALS: BP 174/90; PULSE 61; O2SAT 97
[2024-05-27 23:24] LABS: Add Urine Culture? No; Bacteria Urine TRACE /hpf; Bilirubin Urine Neg (Negative); Blood Urine Neg (Negative); Glucose Urine UA Norm (Normal); Ketones Urine Negative (Negative); Leukocyte Esterase Urine Negative (Negative); Nitrate Urine Negative (Negative); Protein Urine Neg (Negative); Urine Appearance Clear (CLEAR); Urine Color Yellow (Yellow); Urobilinogen Urine Neg (Negative); pH Urine 6 (5-7)
[2024-05-27] MEDS: trazodone 150 mg Tablet 75 MG PO (23:57)
== END 2024-05-28 00:11 | disposition home or self-care (01) ==
PROVIDERS: Emergency Provider Emergency Medicine; PCP Nurse Practitioner Family
DX: E87.1 Hypo-osmolality and hyponatremia (principal); G47.00 Insomnia, unspecified; I10 Essential (primary) hypertension
CPT/HCPCS: 36415; 80053; 81001; 84484; 85025; 93005; 96360; 99284; J7030